=== PATIENT | female | born 1975 | race Caucasian/White ===

== ENCOUNTER 2017-11-13 16:20 | Emergency (ER) | payer OTHER ==
[2017-11-13] MEDS ORDERED: diPHENhydraMINE IV* 50 MG/ML 1 ml VIAL (BENADRYL) IV ONE (19:09)
[2017-11-13] MEDS ORDERED: Ketorolac INJ* 30 MG/ML 1 ML VIAL IV PUSH ONE (19:09)
[2017-11-13] MEDS ORDERED: NS 0.9% 1000 ML* 1,000 ML IV ONE (19:09)
[2017-11-13] MEDS ORDERED: Metoclopramide IV* 5 MG/ML 2 ML VIAL IV ONE (19:09)
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
[2017-11-13 20:48] VITALS: BP 128/55
== END 2017-11-13 20:47 | disposition home or self-care (01) ==
LOC: ED 16:20
DX: G43.909 Migraine, unspecified, not intractable, without status migrainosus (principal); Z87.828 Personal history of other (healed) physical injury and trauma
CPT/HCPCS: 96374; 96375; 99284; J1200; J1885; J2765

== ENCOUNTER 2019-03-04 12:08 | Emergency (ER) | payer OTHER ==
[2019-03-04 15:00] VITALS: BP 150/89
--- NOTE | 2019-03-09 19:26 | UC ---
Lower Extremity/Ankle HPI - HPI Summary HPI Summary: 43 year old female with R ankle pain x 1 month. no ilicating event, mild swelling, no bruising. Pain with increased standing, flexing ankle. no prior injuries, trauma. - History of Current Complaint Chief Complaint: UCLowerExtremity Stated Complaint: ANKLE PAIN Time Seen by Provider: 03/04/19 13:49 Hx Obtained From: Patient ?: No Onset/Duration: Sudden Onset, Lasting Weeks Severity Initially: Moderate Severity Currently: Moderate Pain Intensity: 5 Pain Scale Used: 0-10 Numeric Aggravating Factor(s): Standing, Ambulation Alleviating Factor(s): Rest Able to Bear Weight: Yes - Allergies/Home Medications Allergies/Adverse Reactions: Allergies Allergy/AdvReac Type Severity Reaction Status Date / Time No Known Allergies Allergy Verified 03/04/19 12:55 Home Medications: Home Medications Amitriptyline TAB* [Elavil TAB*] 100 mg PO BEDTIME 03/04/19 [History Confirmed 03/04/19] Cyclobenzaprine TAB* [Flexeril 10 MG TAB*] 10 mg PO BID PRN 03/04/19 [History Confirmed 03/04/19] Oxycodone HCl [Roxicodone] 15 mg PO SEE INSTRUCTIONS 03/04/19 [History Confirmed 03/04/19] Pentosan Polysulfate Sod (NF) [Elmiron (NF)] 100 mg PO TID 03/04/19 [History Confirmed 03/04/19] Pregabalin [Lyrica] 200 mg PO BID 03/04/19 [History Confirmed 03/04/19] SUMAtriptan TAB* [Imitrex TAB*] 100 mg PO SEE INSTRUCTIONS 03/04/19 [History Confirmed 03/04/19] PMH/Surg Hx/FS Hx/Imm Hx Previously Healthy: Yes - Surgical History Surgical History: Yes Surgery Procedure, Year, and Place: choly - Family History Known Family History: Positive: Non-Contributory Negative: Blood Disorder - Social History Occupation: Employed Full-time Alcohol Use: None Substance Use Type: None Smoking Status (MU): Never Smoked Tobacco Review of Systems All Other Systems Reviewed And Are Negative: Yes Constitutional: Positive: Negative Musculoskeletal: Positive: Arthralgia, Decreased ROM, Myalgia Neurological: Positive: Negative Psychological: Positive: Negative Is Patient Immunocompromised?: No Physical Exam Triage Information Reviewed: Yes Appearance: Well-Appearing, No Pain Distress, Well-Nourished Vital Signs: Initial Vital Signs Temp 98.9 F 03/04/19 12:50 Pulse 83 03/04/19 12:50 Resp 18 03/04/19 12:50 BP 160/104 03/04/19 12:50 Pulse Ox 99 03/04/19 12:50 Vital Signs Reviewed: Yes Eyes: Positive: Conjunctiva Clear ENT: Positive: Hearing grossly normal Musculoskeletal: Positive: Other: - R ankle- Full ROM with pain with terminal flexion/ extension. no TTP over med/ lat malleolus. no swelling, no bruising. sitlt distal to ankle, PT, DP 2+ TTP over anterior ankle mortise joint, negative squeeze test. Neurological Exam: Normal Neurological: Positive: Alert, Muscle Tone Normal Psychological Exam: Normal Psychological: Positive: Normal Response To Family Skin Exam: Normal Skin: Positive: Other - no open wounds, sores. Negative: Rashes, Breakdown Lower Extremity Course/Dx - Course Course Of Treatment: Guest Services Manager: Mohan Beyer Daniel, ([id number]) Looper Operator: DORA ( DORA) Report Date: 03/04/2019 14:29:00 Report Status: Final ====== Start of Report Content Patient Name: MERY TUCKER Medical Record# : [id number] Ordering Physician: Stephy HENSON Acct.#: [id number] : Age: 43 Sex: F Location: [facility] Exam Date: 03/04/191406 ADM Status: REG ER Order Information: ANKLE RIGHT 3+VWS Accession Number: [id number] CPT: 30267 HISTORY: mortise pain worse laterally . COMPARISONS: None relevant available at the time of dictation. VIEWS: 3, Frontal, lateral, and oblique views of the right ankle FINDINGS: BONE DENSITY: Normal. BONES: There is no displaced fracture. JOINTS: There is no arthropathy. ALIGNMENT: There is no dislocation. SOFT TISSUES: Unremarkable. OTHER FINDINGS: None. IMPRESSION: NO ACUTE OSSEOUS INJURY. IF SYMPTOMS PERSIST, RECOMMEND REPEAT IMAGING. < Electronically signed by Mohan Beyer MD in OV> 03/04/191424 Dictated By : Mohan Beyer MD Dictated Date/Time: 03/04/191424 Transcribed Date/Time : 03/04/191424 Copy to: CC:Alison Anne MD; Jared Barajas MD; Stephy HENSON Imaging - [facility] - [facility] [address] [facility] [address] [place] [address] ph [phone]) ph ([phone]) ph [phone]) End of Report Content - CAM boot at all times to help with healing - Follow up with orthopedics within 3-5 day for evaluation and treatment - X-rays competed - Rest, Ice, Elevate. - Motrin as needed for pain - may remove cam for driving - Differential Dx/Diagnosis Differential Diagnosis/HQI/PQRI: Sprain, Strain, Tendonitis, Tenosynovitis Provider Diagnosis: High ankle sprain Discharge ED - Sign-Out/Discharge Documenting (check all that apply): Patient Departure All imaging exams completed and their final reports reviewed: Yes - Discharge Plan Condition: Good Disposition: HOME Patient Education Materials: Ankle Sprain (ED) Referrals: Jared Barajas MD [Primary Care Provider] - Manuelito Marlow MD [Medical Doctor] - (follow up in 3-5 days ) Additional Instructions: Guest Services Manager: Mohan Beyer Daniel, ([id number]) Looper Operator: DORA ( ERICANCE) Report Date: 03/04/2019 14:29:00 Report Status: Final ====== Start of Report Content Patient Name: MERY TUCKER Medical Record# : [id number] Ordering Physician: Stephy HENSON Acct.#: [id number] : Age: 43 Sex: F Location: [facility] Exam Date: 03/04/191406 ADM Status: REG ER Order Information: ANKLE RIGHT 3+VWS Accession Number: [id number] CPT: 82345 HISTORY: mortise pain worse laterally . COMPARISONS: None relevant available at the time of dictation. VIEWS: 3, Frontal, lateral, and oblique views of the right ankle FINDINGS: BONE DENSITY: Normal. BONES: There is no displaced fracture. JOINTS: There is no arthropathy. ALIGNMENT: There is no dislocation. SOFT TISSUES: Unremarkable. OTHER FINDINGS: None. IMPRESSION: NO ACUTE OSSEOUS INJURY. IF SYMPTOMS PERSIST, RECOMMEND REPEAT IMAGING. < Electronically signed by Mohan Beyer MD in OV> 03/04/191424 Dictated By : Mohan Beyer MD Dictated Date/Time: 03/04/191424 Transcribed Date/Time : 03/04/191424 Copy to: CC:Alison Anne MD; Jared Barajas MD; Stephy HENSON Imaging - [facility] Imaging - [facility] - [facility] [address] [place], [place] [id number] [place] [id number] [place] [id number] ph [phone]) ph [phone] ph ) End of Report Content - CAM boot at all times to help with healing - Follow up with orthopedics within 3-5 day for evaluation and treatment - X-rays competed - Rest, Ice, Elevate. - Motrin as needed for pain - may remove cam for driving - Billing Disposition and Condition Condition: GOOD Disposition: Home
== END 2019-03-04 14:50 | disposition home or self-care (01) ==
LOC: UCEAST 12:08
DX: S93.401A Sprain of unspecified ligament of right ankle, initial encounter (principal); X58.XXXA Exposure to other specified factors, initial encounter; Y92.9 Unspecified place or not applicable
CPT/HCPCS: 99212; G0463

== ENCOUNTER 2023-09-25 20:06 | Inpatient (IN) ==
[2023-09-25] MEDS ORDERED: cefTRIAXone 2 GM ADDV.VIAL 2 GM in NS 0.9% 100 ml BAG 100 ML IV ONE (21:02)
[2023-09-25] MEDS: Lactated Ringers SEPSIS* BAG 1,640 ML IV ONE (21:20)
[2023-09-25] MEDS: cefTRIAXone 2 gm/50 mL D5W 2 GM/50 ML BAG IV ONE (21:20)
[2023-09-25 21:28] LABS: Hematocrit 37.8 % (35-45); Hemoglobin 12.2 g/dL (11.5-14.3); Mean Corpuscular Hemoglobin 27.2 pg (27-33); Mean Corpuscular Hgb Conc 32.4 g/dL (31-36); Mean Corpuscular Volume 83.7 fL (80-97); Mean Platelet Volume 9.5 fL (7.5-11.2); Platelet Count 316 10^3/uL (150-450); Red Blood Count 4.51 10^6/uL (3.63-4.92); Red Cell Distribution Width 12.9 % (12-17); White Blood Count 11.3 10^3/uL (3.8-11.8)
[2023-09-25 21:33] LABS: Activated Partial Thrombo Time 29.2 seconds (26.0-38.0); INR 2.09 (0.83-1.13)
[2023-09-25 21:42] LABS: Urine Appearance Extra Turbid; Urine Bilirubin 1+ (Negative); Urine Blood 3+ (Negative); Urine Color Yellow; Urine Glucose Trace (Negative); Urine Ketones Trace (Negative); Urine Nitrite Negative (Negative); Urine Protein 2+ (>=100 mg/dL) (Negative); Urine Specific Gravity 1.018 (1.002-1.030); Urine Urobilinogen 1+ (Negative); Urine pH 5.5 (5.0-8.0)
[2023-09-25] MEDS: Norepinephrine 4 MG/250mL D5W 4,000 MCG/250 ML BAG IV SCH (21:56)
[2023-09-25 21:57] LABS: Albumin 3.6 g/dL (3.2-5.2); Albumin/Globulin Ratio 1.5 (1-3); C Reactive Protein 380.23 mg/L (<8.01); Creatinine, Serum 1.97 mg/dL (0.51-0.95); Globulin 2.4 g/dL (2-4); Potassium 4.1 mmol/L (3.5-5.0)
[2023-09-25 22:02] LABS: Urine Bacteria Absent /HPF (Absent); Urine Red Blood Cell 1+(3-5/hpf) /HPF (0-Trace); Urine Squamous Epithelial Cell Present /HPF (Absent); Urine White Blood Cell 1+(6-10/hpf) /HPF (0-Trace)
[2023-09-25 22:04] LABS: ABS Lymphocytes 1.1 10^3/uL (1.0-4.8); ABS Monocytes 1.1 10^3/uL (0.0-0.9); ABS Nucleated RBC 0.03 10^3/ul; Eosinophil % 0.1 %; Lymphocyte % 9.8 %; Nucleated Red Blood Cells % 0.3 %/100WBC (0.0-0.8)
[2023-09-25 22:51] LABS: High Sensitivity Troponin 1 Hr 53 pg/mL (<15)
[2023-09-26] MEDS: Lactated Ringers 1000 ml BAG 1,000 ML IV ONE (00:03)
[2023-09-26] MEDS: Acetaminophen IV 1 GM/100ML 1,000 MG/100 ML BAG IV ONE (00:59)
[2023-09-26] MEDS ORDERED: Norepinephrine 4 MG/250mL D5W 4,000 MCG/250 ML BAG IV SCH (02:00)
[2023-09-26] MEDS: Azithromycin 500 mg/250 ml NS 500 MG/250 ML BAG IVPB ONE (02:11)
[2023-09-26] MEDS: NS 0.9% 1000 ml BAG 1,000 ML IV SCH (03:19)
[2023-09-26] MEDS: Heparin 5000 UNITS/ML 1 mL VIAL SUBCUT SCH (05:58)
[2023-09-26 07:10] LABS: Hematocrit 30.9 % (35-45); Hemoglobin 10.7 g/dL (11.5-14.3); Mean Corpuscular Hemoglobin 28.5 pg (27-33); Mean Corpuscular Hgb Conc 34.4 g/dL (31-36); Mean Corpuscular Volume 82.9 fL (80-97); Platelet Count 198 10^3/uL (150-450); Red Blood Count 3.73 10^6/uL (3.63-4.92); Red Cell Distribution Width 12.8 % (12-17)
[2023-09-26 07:46] LABS: Calcium 7.3 mg/dL (8.6-10.3); Creatinine, Serum 1.37 mg/dL (0.51-0.95); Potassium 3.7 mmol/L (3.5-5.0); eGFR CKD-EPI 47.9 (>60)
[2023-09-26 09:10] LABS: ABS Lymphocytes 0.9 10^3/uL (1.0-4.8); ABS Monocytes 0.9 10^3/uL (0.0-0.9); ABS Neutrophils 9.1 10^3/uL (1.5-7.6); Eosinophil % 0.1 %; Lymphocyte % 8.4 %
[2023-09-26 09:11] LABS: RBC Morphology Normal (Normal)
[2023-09-26] MEDS: NS 0.9% 1000 ml BAG 1,000 ML IV ONE ×2 (11:15→12:00)
[2023-09-26 11:55] LABS: TSH Ultra Thyroid Stim Horm 0.78 mcIU/mL (0.34-5.60)
[2023-09-26 12:06] LABS: Folate 8.14 ng/mL (5.90-24.80)
[2023-09-26] MEDS: cefTRIAXone 1 gm/50 mL D5W 1 GM/50 ML BAG IV SCH (22:03)
[2023-09-27] MEDS: Azithromycin 500 mg/250 ml NS 500 MG/250 ML BAG IVPB SCH (02:52)
[2023-09-27 05:26] LABS: INR 1.6 (0.83-1.13)
[2023-09-27 06:14] LABS: Hematocrit 28.2 % (35-45); Hemoglobin 9.6 g/dL (11.5-14.3); Mean Corpuscular Hemoglobin 27.6 pg (27-33); Mean Corpuscular Hgb Conc 33.9 g/dL (31-36); Mean Corpuscular Volume 81.5 fL (80-97); Mean Platelet Volume 9.2 fL (7.5-11.2); Platelet Count 163 10^3/uL (150-450); Red Blood Count 3.46 10^6/uL (3.63-4.92)
[2023-09-27 06:21] LABS: Albumin 2.6 g/dL (3.2-5.2); Albumin/Globulin Ratio 1.2 (1-3); Calcium 7.3 mg/dL (8.6-10.3); Creatinine, Serum 0.78 mg/dL (0.51-0.95); Globulin 2.1 g/dL (2-4); Magnesium 1.6 mg/dL (1.9-2.7); Potassium 3.3 mmol/L (3.5-5.0); Total Bilirubin 0.7 mg/dL (0.2-1.0); Total Protein 4.7 g/dL (6.4-8.9); eGFR CKD-EPI 94.2 (>60)
[2023-09-27] MEDS: Potassium Chlor 20 meq TAB.ER PO ONE (07:57)
[2023-09-27 08:32] LABS: ABS Eosinophils 0.1 10^3/uL (0.0-0.5); ABS Lymphocytes 0.7 10^3/uL (1.0-4.8); ABS Monocytes 0.3 10^3/uL (0.0-0.9); ABS Neutrophils 3.9 10^3/uL (1.5-7.6); Eosinophil % 1.1 %; Lymphocyte % 14.5 %; Nucleated Red Blood Cells % 0.1 %/100WBC (0.0-0.8); RBC Morphology Normal (Normal)
[2023-09-27] MEDS ORDERED: Sulfur Hexaflouride MICROSPHR 25 MG VIAL ONE (08:54)
[2023-09-27 09:13] LABS: C Reactive Protein 417.94 mg/L (<8.01)
[2023-09-27] MEDS: Sulfur Hexaflouride MICROSPHR 25 MG VIAL IV ONE (09:35)
[2023-09-28 07:01] LABS: Hematocrit 29.6 % (35-45); Hemoglobin 10.2 g/dL (11.5-14.3); Mean Corpuscular Hemoglobin 27.9 pg (27-33); Mean Corpuscular Hgb Conc 34.4 g/dL (31-36); Mean Corpuscular Volume 81.2 fL (80-97); Mean Platelet Volume 9.1 fL (7.5-11.2); Platelet Count 194 10^3/uL (150-450); Red Blood Count 3.65 10^6/uL (3.63-4.92); White Blood Count 7.9 10^3/uL (3.8-11.8)
[2023-09-28 07:16] LABS: Calcium 7.6 mg/dL (8.6-10.3); Creatinine, Serum 0.71 mg/dL (0.51-0.95); Magnesium 1.8 mg/dL (1.9-2.7); Potassium 3.5 mmol/L (3.5-5.0); eGFR CKD-EPI 105.5 (>60)
[2023-09-28] MEDS: Albuterol/Ipratropium NEB.SOL (2.5/0.5 MG) 3 ML NEB.SOLN INH PRN (07:25)
[2023-09-28 07:49] LABS: ABS Eosinophils 0.2 10^3/uL (0.0-0.5); ABS Lymphocytes 1.4 10^3/uL (1.0-4.8); ABS Monocytes 0.7 10^3/uL (0.0-0.9); ABS Neutrophils 5.5 10^3/uL (1.5-7.6); ABS Nucleated RBC 0.01 10^3/ul; Lymphocyte % 17.8 %; Nucleated Red Blood Cells % 0.1 %/100WBC (0.0-0.8)
[2023-09-28] MEDS ORDERED: ceFAZolin 2 GM in NS PREMIX 2 GM/100 ML BAG IVPB SCH (08:00)
[2023-09-28] MEDS ORDERED: Iohexol 350 (CONTRAST) 500 ML MDV IV ONE (08:45)
[2023-09-28] MEDS: ceFAZolin 2 GM PREMIX 2 GM/50 ML BAG IV SCH (08:53)
[2023-09-28 09:26] LABS: Ferritin 409.5 ng/mL (11-307)
[2023-09-28] MEDS: Furosemide 20 mg/2 ml IV VIAL IV SLOW PU ONE (11:09)
[2023-09-28] MEDS: Magnesium Sulfate 2 gm BAG 2 GM/50 ML BAG IVPB ONE (11:09)
[2023-09-28] MEDS: Al Hydrox/Mg Hydrox/Simet LIQ 30 ML UDC PO PRN (20:28)
[2023-09-29 00:21] LABS: Urine Appearance Clear; Urine Bilirubin Negative (Negative); Urine Blood Trace (Negative); Urine Color Light-Yellow; Urine Glucose Negative (Negative); Urine Ketones Negative (Negative); Urine Nitrite Negative (Negative); Urine Protein Trace (Negative); Urine Specific Gravity 1.012 (1.002-1.030); Urine Urobilinogen Negative (Negative)
[2023-09-29 08:26] LABS: Hemoglobin 10.4 g/dL (11.5-14.3); Mean Corpuscular Hemoglobin 27.3 pg (27-33); Mean Corpuscular Hgb Conc 33.5 g/dL (31-36); Mean Corpuscular Volume 81.4 fL (80-97); Mean Platelet Volume 8.7 fL (7.5-11.2); Platelet Count 219 10^3/uL (150-450); Red Blood Count 3.81 10^6/uL (3.63-4.92); White Blood Count 8.2 10^3/uL (3.8-11.8)
[2023-09-29 09:02] LABS: C Reactive Protein 318.45 mg/L (<8.01); Calcium 7.9 mg/dL (8.6-10.3); Creatinine, Serum 0.7 mg/dL (0.51-0.95); Magnesium 1.9 mg/dL (1.9-2.7); Potassium 3.9 mmol/L (3.5-5.0); eGFR CKD-EPI 107.3 (>60)
[2023-09-29 09:08] LABS: ABS Basophils 0.1 10^3/uL (0.0-0.1); ABS Eosinophils 0.2 10^3/uL (0.0-0.5); ABS Lymphocytes 1.1 10^3/uL (1.0-4.8); ABS Monocytes 0.7 10^3/uL (0.0-0.9); ABS Neutrophils 6.1 10^3/uL (1.5-7.6); Eosinophil % 2.6 %; Lymphocyte % 13.7 %
[2023-09-29] MEDS: Benzocaine/Menthol LOZ MT PRN (09:29)
[2023-09-29 15:04] LABS: High Sensitivity Troponin 1 Hr 7 pg/mL (<15)
[2023-09-29] MEDS: Acetaminophen IV 1 GM/100ML 1,000 MG/100 ML BAG IV SCH (18:13)
[2023-09-30 07:00] LABS: Hematocrit 29.1 % (35-45); Hemoglobin 9.9 g/dL (11.5-14.3); Mean Corpuscular Hemoglobin 28.1 pg (27-33); Mean Corpuscular Hgb Conc 34.1 g/dL (31-36); Mean Corpuscular Volume 82.4 fL (80-97); Mean Platelet Volume 9.2 fL (7.5-11.2); Platelet Count 216 10^3/uL (150-450); Red Blood Count 3.53 10^6/uL (3.63-4.92); Red Cell Distribution Width 13.2 % (12-17); White Blood Count 7.6 10^3/uL (3.8-11.8)
[2023-09-30 07:24] LABS: Calcium 7.5 mg/dL (8.6-10.3); Creatinine, Serum 0.68 mg/dL (0.51-0.95); Magnesium 1.8 mg/dL (1.9-2.7); Potassium 3.2 mmol/L (3.5-5.0)
[2023-09-30 07:55] LABS: ABS Eosinophils 0.2 10^3/uL (0.0-0.5); ABS Lymphocytes 1.1 10^3/uL (1.0-4.8); ABS Monocytes 0.7 10^3/uL (0.0-0.9); ABS Neutrophils 5.5 10^3/uL (1.5-7.6); ABS Nucleated RBC 0.01 10^3/ul; Eosinophil % 2.9 %; Lymphocyte % 14.8 %; Nucleated Red Blood Cells % 0.1 %/100WBC (0.0-0.8)
[2023-09-30 07:59] LABS: Albumin 2.5 g/dL (3.2-5.2)
[2023-09-30] MEDS: Magnesium Sulfate 2 gm BAG 2 GM/50 ML BAG IVPB ONE (08:43)
[2023-09-30] MEDS: Sulfur Hexaflouride MICROSPHR 25 MG VIAL IV ONE (10:23)
[2023-09-30] MEDS: Potassium Phosphate IV 15 MMOL in NS 0.9% 250 ml 250 ML IVPB ONE (10:30)
[2023-09-30] MEDS: KCL 10 MEQ/50 ML IVPREMIX 10 MEQ/50 ML BAG IV SCH (10:59)
[2023-09-30] MEDS: Ondansetron 4 mg VIAL 2 MG/ML 2 ml VIAL IV ONE ×2 (11:12→22:33)
[2023-09-30 15:25] LABS: Calcium 7.6 mg/dL (8.6-10.3); Creatinine, Serum 0.68 mg/dL (0.51-0.95)
[2023-09-30] MEDS: Gadoteridol (CONTRAST) 279.3 MG/ML 10 ML IV ONE (21:43)
[2023-10-01 06:27] LABS: Hematocrit 27.8 % (35-45); Hemoglobin 9.3 g/dL (11.5-14.3); Mean Corpuscular Hemoglobin 27.9 pg (27-33); Mean Corpuscular Hgb Conc 33.6 g/dL (31-36); Mean Corpuscular Volume 83.1 fL (80-97); Mean Platelet Volume 8.8 fL (7.5-11.2); Platelet Count 262 10^3/uL (150-450); Red Blood Count 3.35 10^6/uL (3.63-4.92); Red Cell Distribution Width 13.2 % (12-17)
[2023-10-01 06:59] LABS: Calcium 7.5 mg/dL (8.6-10.3); Creatinine, Serum 0.68 mg/dL (0.51-0.95); Magnesium 2.1 mg/dL (1.9-2.7); Phosphorus 2.6 mg/dL (2.5-5.0); Potassium 3.8 mmol/L (3.5-5.0)
[2023-10-01 07:27] LABS: ABS Eosinophils 0.1 10^3/uL (0.0-0.5); ABS Lymphocytes 1.1 10^3/uL (1.0-4.8); ABS Monocytes 0.9 10^3/uL (0.0-0.9); ABS Neutrophils 7.7 10^3/uL (1.5-7.6); ABS Nucleated RBC 0.01 10^3/ul; Anisocytosis 1+; Eosinophil % 1.4 %; Lymphocyte % 11.5 %; Nucleated Red Blood Cells % 0.1 %/100WBC (0.0-0.8); Polychromasia 1+
[2023-10-01] MEDS ORDERED: fentaNYL 100 mcg/2 ml 50 MCG/ML VIAL ONE (11:55)
[2023-10-01] MEDS ORDERED: Ondansetron 4 mg VIAL 2 MG/ML 2 ml VIAL ONE (11:55)
[2023-10-01] MEDS ORDERED: Lidocaine 2% PF 5 ML VIAL ONE (11:55)
[2023-10-01] MEDS ORDERED: Midazolam 2 mg/2 ml VIAL 1 mg/ml 2 ml VIAL (2 mg) ONE (11:55)
[2023-10-01] MEDS ORDERED: Phenylephrine 40 mcg/mL 10mL (400mcg) SYRINGE ONE (11:55)
[2023-10-02 06:26] LABS: Hematocrit 28.6 % (35-45); Hemoglobin 9.5 g/dL (11.5-14.3); Mean Corpuscular Hemoglobin 27.4 pg (27-33); Mean Corpuscular Hgb Conc 33.3 g/dL (31-36); Mean Corpuscular Volume 82.4 fL (80-97); Mean Platelet Volume 8.6 fL (7.5-11.2); Platelet Count 315 10^3/uL (150-450); Red Blood Count 3.47 10^6/uL (3.63-4.92); Red Cell Distribution Width 13.6 % (12-17)
[2023-10-02 07:29] LABS: Calcium 7.4 mg/dL (8.6-10.3); Creatinine, Serum 0.6 mg/dL (0.51-0.95); Magnesium 1.8 mg/dL (1.9-2.7); Potassium 3.9 mmol/L (3.5-5.0); eGFR CKD-EPI 111.3 (>60)
[2023-10-02 08:01] LABS: Albumin 2.5 g/dL (3.2-5.2)
[2023-10-02 10:06] LABS: HDL Cholesterol 14.6 mg/dL
[2023-10-03 05:49] LABS: Hemoglobin 8.6 g/dL (11.5-14.3); Mean Corpuscular Hemoglobin 27.4 pg (27-33); Mean Corpuscular Hgb Conc 33.1 g/dL (31-36); Mean Corpuscular Volume 82.8 fL (80-97); Platelet Count 334 10^3/uL (150-450); Red Blood Count 3.14 10^6/uL (3.63-4.92); Red Cell Distribution Width 13.4 % (12-17); White Blood Count 11.9 10^3/uL (3.8-11.8)
[2023-10-03 06:18] LABS: Calcium 7.7 mg/dL (8.6-10.3); Creatinine, Serum 0.57 mg/dL (0.51-0.95); Magnesium 1.9 mg/dL (1.9-2.7); Potassium 3.4 mmol/L (3.5-5.0); eGFR CKD-EPI 112.7 (>60)
[2023-10-03] MEDS: Potassium Chloride LIQUID 20 MEQ/15 ML LIQUID PO ONE (08:52)
[2023-10-04 06:43] LABS: Hematocrit 30.1 % (35-45); Hemoglobin 10.1 g/dL (11.5-14.3); Mean Corpuscular Hemoglobin 27.7 pg (27-33); Mean Corpuscular Hgb Conc 33.4 g/dL (31-36); Mean Corpuscular Volume 82.8 fL (80-97); Mean Platelet Volume 8.3 fL (7.5-11.2); Platelet Count 592 10^3/uL (150-450); Red Blood Count 3.64 10^6/uL (3.63-4.92); Red Cell Distribution Width 13.7 % (12-17); White Blood Count 13.5 10^3/uL (3.8-11.8)
[2023-10-04 08:01] LABS: Calcium 7.7 mg/dL (8.6-10.3); Creatinine, Serum 0.65 mg/dL (0.51-0.95); eGFR CKD-EPI 109.2 (>60)
[2023-10-04] MEDS: Ondansetron 4 mg VIAL 2 MG/ML 2 ml VIAL IV PRN (11:00)
[2023-10-04] MEDS: Albuterol/Ipratropium NEB.SOL (2.5/0.5 MG) 3 ML NEB.SOLN INH SCH ×3 (11:40→19:35)
[2023-10-04 17:10] LABS: C Reactive Protein 340.08 mg/L (<8.01)
[2023-10-04 17:44] LABS: ABS Basophils 0.1 10^3/uL (0.0-0.1); ABS Eosinophils 0.1 10^3/uL (0.0-0.5); ABS Lymphocytes 2.1 10^3/uL (1.0-4.8); ABS Monocytes 0.7 10^3/uL (0.0-0.9); ABS Neutrophils 10.7 10^3/uL (1.5-7.6); ABS Nucleated RBC 0.01 10^3/ul; Eosinophil % 0.6 %; Lymphocyte % 15.5 %; Nucleated Red Blood Cells % 0.1 %/100WBC (0.0-0.8)
[2023-10-05 03:29] LABS: Urine Bacteria Absent /HPF (Absent); Urine Red Blood Cell 1+(3-5/hpf) /HPF (0-Trace); Urine Squamous Epithelial Cell Present /HPF (Absent); Urine White Blood Cell Trace(0-5/hpf) /HPF (0-Trace)
[2023-10-05 03:30] LABS: Urine Appearance Turbid; Urine Color Yellow
[2023-10-05 03:31] LABS: Urine Ketones 1+ (Negative); Urine Protein 1+ (>=30 mg/dL) (Negative); Urine Specific Gravity 1.037 (1.002-1.030); Urine Urobilinogen Negative (Negative)
[2023-10-05 03:32] LABS: Urine Bilirubin Negative (Negative); Urine Blood 1+ (Negative); Urine Glucose Negative (Negative); Urine Nitrite Negative (Negative)
[2023-10-05 06:33] LABS: ABS Eosinophils 0.1 10^3/uL (0.0-0.5); ABS Lymphocytes 1.3 10^3/uL (1.0-4.8); ABS Monocytes 0.5 10^3/uL (0.0-0.9); ABS Neutrophils 5.5 10^3/uL (1.5-7.6); Hematocrit 27.3 % (35-45); Hemoglobin 9.3 g/dL (11.5-14.3); Lymphocyte % 18.1 %; Mean Corpuscular Hgb Conc 33.9 g/dL (31-36); Mean Corpuscular Volume 82.4 fL (80-97); Mean Platelet Volume 8.3 fL (7.5-11.2); Nucleated Red Blood Cells % 0.1 %/100WBC (0.0-0.8); Platelet Count 505 10^3/uL (150-450); Red Blood Count 3.32 10^6/uL (3.63-4.92); Red Cell Distribution Width 13.5 % (12-17); White Blood Count 7.4 10^3/uL (3.8-11.8)
[2023-10-05 06:57] LABS: Calcium 7.2 mg/dL (8.6-10.3); Creatinine, Serum 0.59 mg/dL (0.51-0.95); eGFR CKD-EPI 111.8 (>60)
[2023-10-05] MEDS: Lactated Ringers 1000 ml BAG 1,000 ML IV ONE (08:27)
[2023-10-05 09:22] LABS: Calcium 7.4 mg/dL (8.6-10.3); Creatinine, Serum 0.56 mg/dL (0.51-0.95); Potassium 3.8 mmol/L (3.5-5.0); eGFR CKD-EPI 113.2 (>60)
[2023-10-05] MEDS: Lactated Ringers 1000 ml BAG 500 ML IV ONE (15:05)
[2023-10-05] MEDS: ceFAZolin 2 GM in NS PREMIX 2 GM/100 ML BAG IVPB SCH (17:09)
[2023-10-06 06:11] LABS: Albumin 2.2 g/dL (3.2-5.2); Albumin/Globulin Ratio 0.7 (1-3); Calcium 7.4 mg/dL (8.6-10.3); Creatinine, Serum 0.53 mg/dL (0.51-0.95); Globulin 3.2 g/dL (2-4); Magnesium 1.9 mg/dL (1.9-2.7); Potassium 3.5 mmol/L (3.5-5.0); Total Bilirubin 0.3 mg/dL (0.2-1.0); Total Protein 5.4 g/dL (6.4-8.9); eGFR CKD-EPI 114.7 (>60)
[2023-10-06 06:12] LABS: ABS Eosinophils 0.1 10^3/uL (0.0-0.5); ABS Lymphocytes 0.9 10^3/uL (1.0-4.8); ABS Monocytes 0.4 10^3/uL (0.0-0.9); ABS Neutrophils 4.2 10^3/uL (1.5-7.6); Eosinophil % 1.1 %; Hematocrit 22.4 % (35-45); Hemoglobin 7.8 g/dL (11.5-14.3); Lymphocyte % 16.5 %; Mean Corpuscular Hemoglobin 28.7 pg (27-33); Mean Corpuscular Hgb Conc 34.9 g/dL (31-36); Mean Corpuscular Volume 82.2 fL (80-97); Mean Platelet Volume 7.8 fL (7.5-11.2); Platelet Count 432 10^3/uL (150-450); Red Blood Count 2.72 10^6/uL (3.63-4.92); Red Cell Distribution Width 13.5 % (12-17); White Blood Count 5.6 10^3/uL (3.8-11.8)
[2023-10-06] MEDS: Enoxaparin 40 MG/0.4 ML SYR SUBCUT SCH (08:50)
[2023-10-06] MEDS: NS 0.9% 1000 ml BAG 1,000 ML IV SCH (13:47)
[2023-10-06 15:13] LABS: Hematocrit 24.2 % (35-45); Hemoglobin 8.2 g/dL (11.5-14.3); Mean Corpuscular Hemoglobin 27.8 pg (27-33); Mean Platelet Volume 7.7 fL (7.5-11.2); Platelet Count 488 10^3/uL (150-450); Red Blood Count 2.95 10^6/uL (3.63-4.92); Red Cell Distribution Width 13.6 % (12-17); White Blood Count 5.9 10^3/uL (3.8-11.8)
[2023-10-07] MEDS: Oxacillin 2 GM in NS 0.9% 100 ML BAG IVPB SCH (00:48)
[2023-10-07 05:36] LABS: ABS Eosinophils 0.1 10^3/uL (0.0-0.5); ABS Lymphocytes 1.2 10^3/uL (1.0-4.8); ABS Monocytes 0.3 10^3/uL (0.0-0.9); ABS Neutrophils 2.5 10^3/uL (1.5-7.6); ABS Nucleated RBC 0.01 10^3/ul; Eosinophil % 2.4 %; Hematocrit 22.3 % (35-45); Hemoglobin 7.6 g/dL (11.5-14.3); Lymphocyte % 28.6 %; Mean Corpuscular Hemoglobin 28.2 pg (27-33); Mean Corpuscular Hgb Conc 34.2 g/dL (31-36); Mean Corpuscular Volume 82.3 fL (80-97); Mean Platelet Volume 7.7 fL (7.5-11.2); Nucleated Red Blood Cells % 0.1 %/100WBC (0.0-0.8); Platelet Count 478 10^3/uL (150-450); Red Blood Count 2.71 10^6/uL (3.63-4.92); Red Cell Distribution Width 13.6 % (12-17); White Blood Count 4.1 10^3/uL (3.8-11.8)
[2023-10-07 05:47] LABS: Calcium 7.3 mg/dL (8.6-10.3); Creatinine, Serum 0.61 mg/dL (0.51-0.95); Magnesium 1.9 mg/dL (1.9-2.7); Potassium 3.8 mmol/L (3.5-5.0); eGFR CKD-EPI 110.9 (>60)
[2023-10-07] MEDS ORDERED: Aminophylline 25 MG/ML VIAL ONE (07:31)
[2023-10-07] MEDS ORDERED: Regadenoson 0.4 MG/5 ML SYRINGE ONE (07:31)
[2023-10-08 06:29] LABS: Hematocrit 22.3 % (35-45); Hemoglobin 7.5 g/dL (11.5-14.3); Mean Corpuscular Hemoglobin 27.9 pg (27-33); Mean Corpuscular Hgb Conc 33.6 g/dL (31-36); Mean Corpuscular Volume 82.9 fL (80-97); Mean Platelet Volume 7.5 fL (7.5-11.2); Platelet Count 566 10^3/uL (150-450); Red Cell Distribution Width 13.3 % (12-17)
[2023-10-08 07:08] LABS: Calcium 7.5 mg/dL (8.6-10.3); Creatinine, Serum 0.59 mg/dL (0.51-0.95); Magnesium 1.8 mg/dL (1.9-2.7); Phosphorus 3.1 mg/dL (2.5-5.0); Potassium 4.2 mmol/L (3.5-5.0); eGFR CKD-EPI 111.8 (>60)
[2023-10-08] MEDS ORDERED: Pantoprazole 80 mg in NS BAG 80 MG/250 ML BAG IV SCH (09:00)
[2023-10-08] MEDS: Pantoprazole VIAL 40 MG VIAL IV SCH (10:21)
[2023-10-08] MEDS: Magnesium Sulfate 2 gm BAG 2 GM/50 ML BAG IVPB ONE (11:10)
[2023-10-09 06:55] LABS: ABS Eosinophils 0.1 10^3/uL (0.0-0.5); ABS Lymphocytes 1.1 10^3/uL (1.0-4.8); ABS Monocytes 0.4 10^3/uL (0.0-0.9); ABS Neutrophils 2.9 10^3/uL (1.5-7.6); ABS Nucleated RBC 0.01 10^3/ul; Eosinophil % 2.7 %; Hematocrit 23.2 % (35-45); Hemoglobin 7.7 g/dL (11.5-14.3); Lymphocyte % 23.7 %; Mean Corpuscular Hemoglobin 27.5 pg (27-33); Mean Corpuscular Hgb Conc 32.9 g/dL (31-36); Mean Corpuscular Volume 83.5 fL (80-97); Mean Platelet Volume 7.2 fL (7.5-11.2); Nucleated Red Blood Cells % 0.1 %/100WBC (0.0-0.8); Platelet Count 651 10^3/uL (150-450); Red Blood Count 2.78 10^6/uL (3.63-4.92); Red Cell Distribution Width 13.7 % (12-17); White Blood Count 4.6 10^3/uL (3.8-11.8)
[2023-10-09 07:12] LABS: Calcium 7.6 mg/dL (8.6-10.3); Creatinine, Serum 0.57 mg/dL (0.51-0.95); Potassium 4.2 mmol/L (3.5-5.0); eGFR CKD-EPI 112.7 (>60)
[2023-10-09] MEDS ORDERED: Albuterol/Ipratropium NEB.SOL (2.5/0.5 MG) 3 ML NEB.SOLN INH PRN (08:22)
[2023-10-09 10:15] VITALS: BP 94/52
== END 2023-10-09 12:00 | disposition home or self-care (01) | DRG 720 ==
LOC: ED 20:06 → SUATTDRO 09-26 01:30 → EDHOLD 09-26 01:30 → ICU 09-26 06:54 → MED 09-27 12:31
PROVIDERS: ADMIT Internal Medicine; ATTEND Student in an Organized Health Care Education/Training Program
PROC: O.CATEE (2023-10-01 12:30)
PROC: O.GIEGD (2023-10-08 15:20)